=== PATIENT | female | born 1945 | race Two or more races ===

== ENCOUNTER 2019-01-02 22:52 | Emergency (ER) | payer MEDICARE, OTHER ==
[~2019-01-02] VITALS: Ht 154.9 cm; Wt 87.1 kg
--- NOTE | 2019-01-02 23:32 | NUR ---
PT BIBSELF COMPLAINING OF L RIB PAIN X THIS MORNING. PT DENIES ANY FALL OR TRAUMA. PT TOOK 500 MG TYLENOL. PT AXO4. RESPIRATIONS EVEN AND UNLABORED. PT PUT ON THE MARINE OILER AND PULSE OX.
[2019-01-02] MEDS ORDERED: HYDROCODONE/APAP 5/325MG 1 EACH TABLET ONE (23:51)
[2019-01-03] MEDS ORDERED: HYDROCODONE/APAP 5/325MG 1 EACH TABLET PO ONE
[2019-01-03 00:03] LABS: BASOPHILS # (AUTO) 0.1 /CMM (0.0-0.2); BASOPHILS % (AUTO) 0.7 % (0.0-2.0); EOSINOPHILS % (AUTO) 6.6 % (0.0-6.0); HEMATOCRIT 39 % (33-45); HEMOGLOBIN 13.4 g/dL (11.5-14.8); LYMPHOCYTES # (AUTO) 3.3 /CMM (0.8-4.8); LYMPHOCYTES % (AUTO) 37.5 % (20.0-44.0); MEAN CORPUSCULAR HGB CONC 34 g/dl (31.0-36.0); MEAN CORPUSCULAR VOLUME 89 fL (82-100); MONOCYTES # (AUTO) 0.6 /CMM (0.1-1.30); MONOCYTES % (AUTO) 6.7 % (2.0-12.0); NEUTROPHILS # (AUTO) 4.3 /CMM (1.8-8.9); NEUTROPHILS % (AUTO) 48.5 % (43.0-81.0); PLATELET COUNT (AUTO) 294 /CMM (150-450); RED BLOOD CELL COUNT(AUTO) 4.44 MIL/uL (4.0-5.2); WHITE BLOOD COUNT (AUTO) 8.9 K/uL (4.3-11.0)
[2019-01-03 00:13] LABS: CALCIUM, SERUM 8.9 mg/dL (8.5-10.1); CARBON DIOXIDE 27 mmol/L (21-32); CHLORIDE 103 mmol/L (98-107); CREATININE 0.6 mg/dL (0.6-1.3); GLUCOSE 147 mg/dL (74-106); POTASSIUM 3.9 mmol/L (3.5-5.1); SODIUM SERUM 138 mmol/L (136-145); UREA NITROGEN, BLOOD 16 mg/dL (7-18)
--- NOTE | 2019-01-03 00:13 | NUR ---
PT TAKEN TO RADIOLOGY DEPT. FOR XRAYS.
--- NOTE | 2019-01-03 00:21 | NUR ---
PT RETURNED FROM CT.
[2019-01-03 00:36] LABS: D-DIMER 3.4 mg/L(FEU (0.17-0.50)
[2019-01-03] MEDS ORDERED: IOHEXOL-350 100 ML VIAL IV ONE (00:49)
[2019-01-03] MEDS ORDERED: IV NS 0.9% 250 ML IV ONE (00:49)
[2019-01-03] MEDS ORDERED: CT SWABBABLE VALVE TRANS SET 1 EA INFUS.SET MC ONE (00:49)
--- NOTE | 2019-01-03 00:56 | NUR ---
PT TAKEN TO CT VIA RJAQUAN.
--- NOTE | 2019-01-03 01:05 | NUR ---
PT RETURNED FROM CT.
--- NOTE | 2019-01-03 02:10 | NUR ---
Patient discharged to home in stable condition. Written and verbal after care instructions given. Patient verbalizes understanding of instruction. IV removed. Catheter intact and site benign. Pressure and 4x4 applied to site. No bleeding noted.
[2019-01-03 02:11] VITALS: BP 132/77
== END 2019-01-03 02:12 | disposition home or self-care (01) ==
LOC: ER 22:52
DX: J18.9 Pneumonia, unspecified organism (principal); E11.9 Type 2 diabetes mellitus without complications; Z98.41 Cataract extraction status, right eye; Z98.42 Cataract extraction status, left eye
CPT/HCPCS: 36415; 71100; 71275; 80048; 84484; 85025; 85378; 85730; 93005; 99284; J7050; Q9967

== ENCOUNTER 2022-12-11 18:49 | Inpatient (IN) | payer MEDICARE, OTHER ==
[~2022-12-11] VITALS: Ht 152.4 cm; Wt 57.6 kg
--- NOTE | 2022-12-11 19:21 | NUR ---
BIB FAMILY C/O SOB, PRODUCTIVE COUGH X 1 WEEK, WORST TODAY. PATIENT PLACED COMFORTABLY IN BED, VITALS CHECKED.
[2022-12-11] MEDS ORDERED: ALBUTEROL FS 2.5 MG/0.5 ML VIAL.NEB NEB ONE (20:00)
[2022-12-11] MEDS ORDERED: methylPREDNISolone SOD SUCC 125 MG/2ML VIAL IV ONE (20:00)
--- NOTE | 2022-12-11 20:07 | NUR ---
EKG COMPLETED AT BEDSIDE
--- NOTE | 2022-12-11 20:15 | NUR ---
PHLEBOTOMY AT BEDSIDE
--- NOTE | 2022-12-11 20:24 | NUR ---
XR AT BEDSIDE
[2022-12-11] MEDS ORDERED: ALBUTEROL FS 2.5 MG/0.5 ML VIAL.NEB ONE (20:30)
[2022-12-11] MEDS ORDERED: methylPREDNISolone SOD SUCC 125 MG/2ML VIAL ONE (20:30)
--- NOTE | 2022-12-11 20:36 | NUR ---
MRSA SWAB COLLECTED AND SENT TO LAB
--- NOTE | 2022-12-11 20:36 | NUR ---
RT AT BEDSIDE FOR BREATHING TX
--- NOTE | 2022-12-11 20:36 | NUR ---
COVID SWAB COLLECTED AND SENT TO LAB
--- NOTE | 2022-12-11 20:38 | NUR ---
URINE CUP GIVEN TO PT
[2022-12-11] MEDS ORDERED: CEFEPIME 2 GM in IV D5W 100 ML IV STA (21:06)
--- NOTE | 2022-12-11 21:20 | NUR ---
1-PERSON ASSIST TO RESTROOM
--- NOTE | 2022-12-11 21:22 | NUR ---
URINE COLLECTED AND SENT TO LAB
[2022-12-11] MEDS ORDERED: DOXYCYCLINE 100 MG VIAL ONE (21:25)
[2022-12-11] MEDS ORDERED: CEFEPIME 1 GM VIAL ONE (21:28)
[2022-12-11] MEDS ORDERED: DOXYCYCLINE 100 MG in IV D5W 100 ML IV ONE (21:30)
[2022-12-11 21:36] LABS: BASOPHILS # (AUTO) 0.1 K/uL (0.0-0.2); BASOPHILS % (AUTO) 0.7 % (0.0-2.0); EOSINOPHILS % (AUTO) 2.4 % (0.0-6.0); HEMATOCRIT 43 % (33-45); HEMOGLOBIN 14.3 g/dL (11.5-14.8); MEAN CORPUSCULAR HGB CONC 33 g/dl (31.0-36.0); MEAN CORPUSCULAR VOLUME 92 fL (82-100); MONOCYTES # (AUTO) 1.1 K/uL (0.1-1.30); MONOCYTES % (AUTO) 7.7 % (2.0-12.0); NEUTROPHILS # (AUTO) 8.8 K/uL (1.8-8.9); NEUTROPHILS % (AUTO) 61.2 % (43.0-81.0); PLATELET COUNT (AUTO) 247 K/uL (150-450); RED BLOOD CELL COUNT(AUTO) 4.71 MIL/uL (4.0-5.2); WHITE BLOOD COUNT (AUTO) 14.3 K/uL (4.3-11.0)
[2022-12-11 21:42] LABS: CALCIUM, SERUM 9.1 mg/dL (8.5-10.1); CARBON DIOXIDE 27 mmol/L (21-32); CHLORIDE 100 mmol/L (98-107); CREATININE 0.5 mg/dL (0.6-1.3); GLUCOSE 116 mg/dL (74-106); POTASSIUM 3.7 mmol/L (3.5-5.1); SODIUM SERUM 137 mmol/L (136-145); UREA NITROGEN, BLOOD 10 mg/dL (7-18)
[2022-12-11 21:54] LABS: ALANINE AMINOTRANSFERASE 18 U/L (12-78); ALBUMIN 3.1 g/dL (3.4-5.0); ALKALINE PHOSPHATASE 88 U/L (46-116); ASPARTATE AMINOTRANSFERASE 27 U/L (15-37); BILIRUBIN,DIRECT 0.2 mg/dL (0.0-0.2); BILIRUBIN,TOTAL 0.7 mg/dL (0.2-1.0); TOTAL PROTEIN, SERUM 8.4 g/dL (6.4-8.2)
[2022-12-11] MEDS ORDERED: IPRATROPIUM NEB FS 0.5 MG/2.5 ML AMPUL.NEB NEB PRN (22:30)
[2022-12-11] MEDS ORDERED: Z GUARD REMEDY 4 OZ OINT TP PRN (22:30)
[2022-12-11] MEDS ORDERED: ALBUTEROL FS 2.5 MG/3 ML VIAL.NEB NEB PRN (22:30)
[2022-12-11] MEDS ORDERED: DEXTROSE 50%-WATER 50 ML DISP.SYRIN IV PRN (22:30)
[2022-12-11] MEDS ORDERED: ZOLPIDEM TARTRATE 5 MG TABLET PO PRN (22:30)
[2022-12-11] MEDS ORDERED: ONDANSETRON HCL/PF 4 MG/2 ML VIAL IVP PRN (22:30)
[2022-12-11] MEDS ORDERED: IV LR 1000 ML 1,000 ML IV ONE (22:30)
[2022-12-11] MEDS ORDERED: ACETAMINOPHEN 325 MG TABLET PO PRN (22:30)
[2022-12-11] MEDS ORDERED: MAG HYDROX/AL HYDROX/SIMETH 30 ML UDC PO PRN (22:30)
[2022-12-11] MEDS ORDERED: MAGNESIUM HYDROXIDE 30 ML UDC PO PRN (22:30)
[2022-12-11 22:42] LABS: BILIRUBIN,URINE NEGATIVE (NEGATIVE); COLOR,URINE YELLOW (YELLOW); LEUKOCYTE ESTERASE ,URINE NEGATIVE (NEGATIVE); NITRITE, URINE NEGATIVE (NEGATIVE); PROTEIN,URINE NEGATIVE (NEGATIVE); UGLUCOSE NEGATIVE (NEGATIVE)
[2022-12-11 22:49] LABS: BACTERIA,URINE Rare /HPF (None Seen); RBC,URINE 0-2 /HPF (0-2); SQUAMOUS EPITHELIAL CELL,UR Many /HPF (None Seen); WBC,URINE 0-2 /HPF (0-3)
--- NOTE | 2022-12-11 23:20 | NUR ---
20GA RFA ESTABLISHED. PT TOLERATED WELL.
--- NOTE | 2022-12-11 23:21 | NUR ---
REPORT GIVEN TO JUDI OLSON. PT GOING TO 325-1.
[2022-12-12] VITALS (8 sets, daily range): BP systolic 96–114; BP diastolic 58–75
[2022-12-12] MEDS: ENOXAPARIN SODIUM 40 MG/0.4 ML DISP.SYRIN SQ SCH ×2 (00:29→22:41)
--- NOTE | 2022-12-12 00:30 | NUR ---
PLANT OPERATIONS WORKERELECTROPHYSIOLOGY NURSE PRACTITIONER NOTE RECEIVED REPORT FROM DAYANA AND PATIENT WAS BROUGHT TO THE UNIT AT AROUND 2330 VIS STRETCHER, ACCOMPANIED BY 2 ER STAFFS. PATIENT WAS ADMITTED D/T SOB AND WORSENING PRODUCTIVE COUGH X1 WEEK. DIRECTED TO ROOM 325-1. PATIENT IS ALERT AND ORIENTED X3. BURKINAN SPEAKING. ABLE TO COMMUNICATE NEEDS WITH THE STAFFS. AFEBRILE AND NO C/O PAIN OR DISCOMFORT. PLACED PATIENT ON O2 INHALATION VIA NASAL CANNULA AT 3LPM. EXPLAINED ADMISSION PROCESS WHICH INCLUDES SKIN ASSESSMENT. SON WAS AT BEDSIDE DURING ADMISSION AND WAS ABLE TO EXPLAIN TO HIS MOM AND BOTH OF THEM AGREED FOR SKIN ASSESSMENT. PATIENT WAS NOTED WITH DISCOLORATION ON L ARM AND REDNESS ON SACRUM BUT SKIN IS INTACT. WITH IV ACCESS ON RFA 20G RUNNING WITH LR AND L WRIST 22G-SL. BELONGINGS AND VALUABLES CHECKED AND PROPERLY DOCUMENTED BY ASSIGNED STAFF. SAFETY MEASURES IN PLACE. KEPT BED IN LOCKED AND IN LOW POSITION. SIDE RAILS UP X2. ADVISED TO USE THE CALL LIGHT WHEN IN NEED OF ASSISTANCE.
--- NOTE | 2022-12-12 06:26 | NUR ---
[facility] DIRECTOR CLOSING NOTE PATIENT IN BED, WITH HOB ELEVATED, ASLEEP BUT EASY TO AROUSE AND RESPONSIVE. ALERT AND ORIENTED X3. ABLE TO MAKE NEEDS KNOWN. AFEBRILE AND NOT IN ANY FORM OF ACUTE DISTRESS. ON O2 INHALATION VIA NASAL CANNULA AT 3LPM. WITH IV ACCESS ON RFA 20G AND L WRIST 22G-SL. ON TELE MONITORING WITH CURRENT READING OF SR 68. MEDICATED ORDERED. ENCOURAGED TO TURN AND REPOSITION EVERY 2 HOURS AND TOLERATED TO PROMOTE PROPER CIRCULATION AND COMFORT. SAFETY MEASURES IN PLACE. KEPT BED IN LOCKED AND IN LOW POSITION. SIDE RAILS UP X2. ADVISED TO USE THE CALL LIGHT WHEN IN NEED OF ASSISTANCE. ALL NURSING NEEDS ATTENDED. ENDORSED TO INCOMING SHIFT FOR CONTINUITY OF CARE.
[2022-12-12] MEDS: BLOOD SUGAR DIAGNOSTIC 1 EACH STRIP IN SCH ×4 (06:32→21:33)
[2022-12-12 06:33] LABS: BASOPHILS % (AUTO) 0.1 % (0.0-2.0); HEMATOCRIT 38 % (33-45); HEMOGLOBIN 12.3 g/dL (11.5-14.8); LYMPHOCYTES # (AUTO) 1.4 K/uL (0.8-4.8); LYMPHOCYTES % (AUTO) 11.8 % (20.0-44.0); MEAN CORPUSCULAR HGB CONC 32 g/dl (31.0-36.0); MEAN CORPUSCULAR VOLUME 92 fL (82-100); MONOCYTES # (AUTO) 0.1 K/uL (0.1-1.30); MONOCYTES % (AUTO) 0.7 % (2.0-12.0); NEUTROPHILS # (AUTO) 10.3 K/uL (1.8-8.9); NEUTROPHILS % (AUTO) 87.4 % (43.0-81.0); PLATELET COUNT (AUTO) 266 K/uL (150-450); RED BLOOD CELL COUNT(AUTO) 4.15 MIL/uL (4.0-5.2); WHITE BLOOD COUNT (AUTO) 11.7 K/uL (4.3-11.0)
[2022-12-12] MEDS: INSULIN REGULAR, HUMAN 100 UNIT/ML 3 ML VIAL SQ PRN ×4 (06:35→23:00)
[2022-12-12 06:39] LABS: CHOLESTEROL 170 mg/dL (<200); HDL CHOLESTEROL 52 mg/dL (40-60); LDL 112 mg/dL (0-99); TRIGLYCERIDES 65 mg/dL (30-150)
[2022-12-12 06:52] LABS: CALCIUM, SERUM 8.9 mg/dL (8.5-10.1); CARBON DIOXIDE 27 mmol/L (21-32); CHLORIDE 103 mmol/L (98-107); CREATININE 0.5 mg/dL (0.6-1.3); GLUCOSE 226 mg/dL (74-106); MAGNESIUM 1.6 mg/dL (1.8-2.4); PHOSPHORUS 3.4 mg/dL (2.5-4.9); SODIUM SERUM 139 mmol/L (136-145); UREA NITROGEN, BLOOD 8 mg/dL (7-18)
--- NOTE | 2022-12-12 08:04 | NUR ---
TELE MANAGER RESEARCH OPENING NOTE PATIENT RECEIVED IN BED AWAKE A/OX4. PATIENT IS ON NASAL CANNULA 3LPM, SO2 93%; IN SLIGHT FOWLERS POSITION. TELE MONITOR SHOWING SR 70. VITALS: BP 96/61,HR 66,R 20, T 97.3. UKRAINIAN SPEAKING ABLE TO MAKE ALL NEED KNOWN. IV SITE RFA G#20; L WRIST G #22. CLEAN AND INTACT. PATIENT SAFETY PRECAUTION ARE IN PLACE: BED AT THE LOWEST POSITION, LOCKED, SR X2, CALL LIGHT WITHIN REACH.
[2022-12-12] MEDS ORDERED: PANTOPRAZOLE 40 MG VIAL IV SCH (09:00)
[2022-12-12] MEDS: methylPREDNISolone SOD SUCC 40 MG/ML VIAL IV SCH ×2 (09:01→21:19)
[2022-12-12] MEDS: Magnesium 1GM/D5W 100ML PREMIX 100 ML IV SCH ×2 (11:31→12:39)
[2022-12-12] MEDS ORDERED: NINT100C PO (15:18)
[2022-12-12] MEDS ORDERED: PRED5TAB48 PO (15:18)
--- NOTE | 2022-12-12 15:20 | NUR ---
RN NOTE Per patient's daughter, Pooja, patient's Transfusion Aide who is following up on her Idiopathic Pulmonary Fibrosis is Dr. Aly Alaniz [phone].
[2022-12-12] MEDS ORDERED: PRED5TAB PO (15:27)
--- NOTE | 2022-12-12 18:46 | NUR ---
TELE ALL SOURCE INTELLIGENCE CLOSING NOTE PATIENT IS IN BED RESTING, A/OX4 . PATIENT IS ON NASAL CANNULA 3LPM, SO2 91%; IN SLIGHT FOWLERS POSITION. NO S/S OF SOB. TELE MONITOR SHOWING SR 76. SCHEDULED MEDICATION ADMINISTERED.ALL NEEDS ATTENDED. IV SITE RFA G#20; L WRIST G #22. CLEAN AND INTACT. PATIENT SAFETY PRECAUTION ARE IN PLACE: BED AT THE LOWEST POSITION, LOCKED, SR X2, CALL LIGHT WITHIN REACH.
--- NOTE | 2022-12-12 21:06 | NUR ---
WIRE TWISTING MACHINE OPERATOR OPENING NOTES RECEIVED PATIENT IN BED, ON MODERATE HIGH BACKREST POSITION. ON NASAL CANNULA AT 3 LMP SATURATING AT 98%. ON BEDREST. USES COMMODE AT BEDSIDE AND DIAPER. ON CCHO DIET. WITH IV ACCESS AT RFA #29G ON SL PATENT AND INTACT. NO SON NOTED AT THIS TIME. NO PAIN OR DISCOMFORT NOTED. KEPT BED ON LOWER LOCKED POSITION, KEPT SIDE RAILS UP X 2 ALL THE TIME. KEPT PATIENT WARM AND COMFORTABLE. WILL CONTINUE TO MONITOR.
[2022-12-12] MEDS: CEFEPIME 1 GM in IV D5W 50 ML IV SCH (21:19)
[2022-12-13] VITALS: BP 110/70
[2022-12-13] MEDS: BLOOD SUGAR DIAGNOSTIC 1 EACH STRIP IN SCH ×4 (05:56→22:05)
[2022-12-13] MEDS: INSULIN REGULAR, HUMAN 100 UNIT/ML 3 ML VIAL SQ PRN ×3 (05:57→22:08)
--- NOTE | 2022-12-13 06:44 | NUR ---
RN MS CLOSING NOTES PATIENT IS IN BED, AWAKE ON MODERATE HIGH BACK REST POSITION.A/O X 4 ABLE TO VERBALIZED NEEDS ON OXYGEN VIA NASAL CANNULA AT 3LPM SATURATING WELL AT 98%. BREATHING TREATMENT GIVEN. NO S/S PAIN OR DISCOMFORT AT THIS TIME. NO S/S OF SOB OR NOTED AT THIS TIME. PATIENT IS CONTINENT USES COMMODE. ALL DUE MEDICATIONS GIVEN, ALL NEEDS ATTENDED. KEPT BED ON LOWER LOCKED POSITION, KEPT SIDE RAILS UP X 2 ALL THE TIME. KEPT CALL LIGHT WITHIN AT REACH. KEPT SAFETY MEASURES ALL THE TIME. WILL ENDORSED TO AM SHIFT FOR PETR.
--- NOTE | 2022-12-13 07:00 | NUR ---
LAMINATOR PREFORMS OPENING NOTES: RECEIVED PT IN BED AWAKE, ALERT AND ORIENTED X 4 AND ABLE TO MAKE NEEDS KNOWN, NO SOB OR CARDIAC DISTRESS NOTED. ON O2 INHALATION @ 3LPM VIA NC. ON TELE MONITOR WITH CURRENT READING OF SINUS RYTHM @85 BPM. WITH RFA GAUGE 20, L WRIST GAUGE 22 PATENT INTACT FLUSHING WELL AND SL. SAFETY MEASURES MAINTAINED: BED LOCKED AND IN LOWEST POSITION, SIDE RAILS UP X2 CALL LIGHT IN EASY [facility] FOR HELP. WILL MONITOR PT ACCORDINGLY.
[2022-12-13 08:00] VITALS: BP 128/81
[2022-12-13] MEDS: methylPREDNISolone SOD SUCC 40 MG/ML VIAL IV SCH ×2 (08:17→21:47)
[2022-12-13] MEDS: PANTOPRAZOLE 40 MG TABLET.DR PO SCH (08:17)
[2022-12-13] MEDS ORDERED: ALBU18HF2 INH (10:31)
[2022-12-13] MEDS ORDERED: PROM118S5 PO (10:31)
[2022-12-13] MEDS ORDERED: FLUT1BLS INH (10:31)
[2022-12-13 11:10] LABS: BASOPHILS % (AUTO) 0.2 % (0.0-2.0); HEMATOCRIT 38 % (33-45); HEMOGLOBIN 12.3 g/dL (11.5-14.8); LYMPHOCYTES # (AUTO) 1.3 K/uL (0.8-4.8); LYMPHOCYTES % (AUTO) 8.7 % (20.0-44.0); MEAN CORPUSCULAR HGB CONC 32 g/dl (31.0-36.0); MEAN CORPUSCULAR VOLUME 91 fL (82-100); MONOCYTES # (AUTO) 0.5 K/uL (0.1-1.30); MONOCYTES % (AUTO) 3.4 % (2.0-12.0); NEUTROPHILS # (AUTO) 13.2 K/uL (1.8-8.9); NEUTROPHILS % (AUTO) 87.7 % (43.0-81.0); PLATELET COUNT (AUTO) 269 K/uL (150-450); RED BLOOD CELL COUNT(AUTO) 4.16 MIL/uL (4.0-5.2); WHITE BLOOD COUNT (AUTO) 15.1 K/uL (4.3-11.0)
[2022-12-13 11:21] LABS: CALCIUM, SERUM 8.8 mg/dL (8.5-10.1); CARBON DIOXIDE 28 mmol/L (21-32); CHLORIDE 103 mmol/L (98-107); CREATININE 0.5 mg/dL (0.6-1.3); GLUCOSE 208 mg/dL (74-106); POTASSIUM 4.2 mmol/L (3.5-5.1); SODIUM SERUM 139 mmol/L (136-145); UREA NITROGEN, BLOOD 14 mg/dL (7-18)
[2022-12-13 12:00] VITALS: BP_SYST 116; BP_SYST 126; BP_DIAS 73; BP_DIAS 76
[2022-12-13] MEDS: BENZONATATE 100 MG CAPSULE PO PRN ×2 (12:17→21:48)
[2022-12-13 16:00] VITALS: BP 126/76
--- NOTE | 2022-12-13 18:48 | NUR ---
SOLAR SALES ASSESSOR CLOSING NOTES: PT IN BED AWAKE, ALERT AND ORIENTED X 4 AND ABLE TO MAKE NEEDS KNOWN, NO SOB OR CARDIAC DISTRESS NOTED. ON O2 INHALATION @ 3LPM VIA NC. ON TELE MONITOR WITH CURRENT READING OF SINUS RHYTHM @75 BPM. WITH RFA GAUGE 20, L WRIST GAUGE 22 PATENT INTACT FLUSHING WELL AND SL. SAFETY MEASURES MAINTAINED: BED LOCKED AND IN LOWEST POSITION, SIDE RAILS UP X2 CALL LIGHT IN EASY REACH FOR HELP. WILL ENDORSED TO ORTHOPEDIC NURSE PRACTITIONER RN FOR PETR.
--- NOTE | 2022-12-13 19:05 | NUR ---
MUSKRAT TRAPPER OPENING NOTES: PATIENT IS SITTING IN BED WITH HER FAMILY MEMBERS AT HER BED SIDE. SHE IS ALERT AND ORIENTED, AO X 4. PT IS ON 3 TOMATO PULPER OPERATOR OF OXYGEN VIA NC, TOLERATED WELL. NO S/S OF DISTRESS OR SOB. SHE IS ON EXTERNAL AQUACULTURE FARMER, ON THE MONITOR, HER HEART RHYTHM IS SR. AND HER HR IS AT 90S. SHE HAS IV ACCESS AT HER R FA, #20G; SL. AND ANOTHER ONE IS AT HER L WRIST, GAUGE 22, SL. BOTH IV ACCESS ARE FLUSHED WELL WITH NS. IV SITE IS PATENT INTACT. INSTRUCTED THE PT TO CALL FOR HELP NEEDED. SAFETY MEASURES ARE IN PLACED: BED IS LOCKED AND IN THE LOWEST POSITION; SIDE RAILS UP X2; BED ALARM IS SET; CALL LIGHT AND TABLE ARE WITHIN EASY REACH. WILL CONTINUE MONITORING THE PT AND PROVIDE THE CARE SHE NEEDS.
[2022-12-13 20:00] VITALS: BP 109/67
[2022-12-13] MEDS: CEFEPIME 1 GM in IV D5W 50 ML IV SCH (21:48)
[2022-12-13] MEDS: ENOXAPARIN SODIUM 40 MG/0.4 ML DISP.SYRIN SQ SCH (21:49)
--- NOTE | 2022-12-13 21:49 | NUR ---
MEDIA ANALYST NOTE PT HAS PRODUCTIVE COUGH. PRN PO MEDICATION, BENZONATATE 100 MG, ADMINISTERED TO THE PT PER MD ORDER.
--- NOTE | 2022-12-13 22:00 | NUR ---
OUTBOARD MOTOR INSPECTOR NOTE FOUND PT HAS MULTIPLE DIFFERENT HOME MEDICATIONS AT HER BED SIDE. PT STATES THAT SHE WILL LET HER SON TAKE THEM HOME TOMORROW. SEALED THE MEDICATIONS IN A PLASTIC BAG AND PUT THEM AT THE NURSING STATION. WILL LET THE DAY SHIFT NURSE FOLLOW UP TO LET PT'S FAMILY MEMBERS BRING THE MEDICATIONS HOME. CHARGE NURSE, NARENDRA, NOTIFIED.
[2022-12-14] VITALS (7 sets, daily range): BP systolic 106–138; BP diastolic 66–81
[2022-12-14 06:14] LABS: BASOPHILS % (AUTO) 0.1 % (0.0-2.0); HEMATOCRIT 37 % (33-45); HEMOGLOBIN 12.3 g/dL (11.5-14.8); LYMPHOCYTES # (AUTO) 1.5 K/uL (0.8-4.8); LYMPHOCYTES % (AUTO) 11.7 % (20.0-44.0); MEAN CORPUSCULAR HGB CONC 33 g/dl (31.0-36.0); MEAN CORPUSCULAR VOLUME 92 fL (82-100); MONOCYTES # (AUTO) 0.3 K/uL (0.1-1.30); MONOCYTES % (AUTO) 2.3 % (2.0-12.0); NEUTROPHILS # (AUTO) 10.8 K/uL (1.8-8.9); NEUTROPHILS % (AUTO) 85.9 % (43.0-81.0); PLATELET COUNT (AUTO) 286 K/uL (150-450); RED BLOOD CELL COUNT(AUTO) 4.09 MIL/uL (4.0-5.2); WHITE BLOOD COUNT (AUTO) 12.6 K/uL (4.3-11.0)
[2022-12-14] MEDS: INSULIN REGULAR, HUMAN 100 UNIT/ML 3 ML VIAL SQ PRN ×4 (06:35→22:51)
[2022-12-14] MEDS: BLOOD SUGAR DIAGNOSTIC 1 EACH STRIP IN SCH ×4 (06:36→22:44)
[2022-12-14 06:44] LABS: CALCIUM, SERUM 8.9 mg/dL (8.5-10.1); CARBON DIOXIDE 29 mmol/L (21-32); CHLORIDE 104 mmol/L (98-107); CREATININE 0.5 mg/dL (0.6-1.3); GLUCOSE 210 mg/dL (74-106); MAGNESIUM 1.9 mg/dL (1.8-2.4); POTASSIUM 4.3 mmol/L (3.5-5.1); SODIUM SERUM 141 mmol/L (136-145); UREA NITROGEN, BLOOD 16 mg/dL (7-18)
--- NOTE | 2022-12-14 06:50 | NUR ---
FIELD AGENT NOTE PT'S HOME MEDICATION IS AT THE NURSING STATION, SEALED IN A PLASTIC BAG. PT STATED HER FAMILY MEMBER WOULD TAKE IT HOME. WILL ENDORSE NEXT SHIFT NURSE TO FOLLOW UP.
--- NOTE | 2022-12-14 06:53 | NUR ---
COURT ATTENDANT CLOSING NOTES: PATIENT IS SITTING IN BED. SHE IS ALERT AND ORIENTED, AO X 4. PT IS ON 3 INSTRUMENT FITTER OF OXYGEN VIA NC, TOLERATED WELL. NO S/S OF DISTRESS OR SOB. SHE IS ON EXTERNAL PER DIEM INTERPRETER, ON THE MONITOR, HER HEART RHYTHM IS SB WITH HR AT 50S AND 40S. AFTER MIDNIGHT, PT STARTED HAVING IMTIAZ CARDIA. PT WAS ASYMPTOMATIC. CHARGE NURSE, NARENDRA, NOTIFIED. BP WERE WITHIN HER BASELINE. PT HAS TWO IV ACCESS. ONE IS AT HER R FA, #20G; SL. AND ANOTHER ONE IS AT HER L WRIST, GAUGE 22, SL. BOTH IV ACCESS ARE FLUSHED WELL WITH NS. IV SITE IS PATENT INTACT. INSTRUCTED THE PT TO CALL FOR HELP NEEDED. SAFETY MEASURES ARE IN PLACED: BED IS LOCKED AND IN THE LOWEST POSITION; SIDE RAILS UP X2; BED ALARM IS SET; CALL LIGHT AND TABLE ARE WITHIN EASY REACH. WILL ENDORSE NEXT SHIFT NURSE FOR CONTINUING PT CARE.
[2022-12-14 07:11] LABS: PHOSPHORUS 3.7 mg/dL (2.5-4.9)
--- NOTE | 2022-12-14 07:36 | NUR ---
RN OPENING NOTES: I RECEIVED PATIENT IN BED ASLEEP, EASILY AWAKENED. A/O X 4 . PT IS ON NC 3 LPM O2 . BREATHING EVEN AND NONLABORED. NO COMPLAINT OF PAIN AT THIS TIME. NKA. PT IS ON [place]UP[place]A LINER HELPER SINUS IMTIAZ HR @ 46 . NO COMPLAINS OF CHEST PAIN AT TINS TIME. NOTED WITH IV ACCESS ON RIGHT FA #20 G, S.L AND LEFT WRIST # 22 G, SL. SAFETY MEASURE IN PLACE. BED IN LOW AND LOCKED POSITION. SIDE RAILS UP X2. CALL LIGHT WITHIN REACH. I WILL CONTINUE TO MONITOR PT.
[2022-12-14] MEDS: methylPREDNISolone SOD SUCC 40 MG/ML VIAL IV SCH ×2 (08:37→21:27)
[2022-12-14] MEDS: PANTOPRAZOLE 40 MG TABLET.DR PO SCH (08:37)
--- NOTE | 2022-12-14 11:00 | NUR ---
PT came and worked with pt. Today PT HAS LIMITED GAIT ACTIVITY DUE TO SHORTNESS OF BREATH DURING GAIT TRAINING AND HER o2 SATURATION DECREASED TO 80%. @ 2 L O2 VIA NC WHICH MADE IT DIFFICULT FOR HER TO WALK LONGER DISTANCE. PROPER BREATHING AND PACING WERE INSTRUCTED TO PATIENT TO ENHANCE ACTIVITY TOLERANCE.
--- NOTE | 2022-12-14 18:35 | NUR ---
RN CLOSING NOTES : PT IS A & O X 4 SITTING IN A CHAIR AND AWAKE. PT IS ON TELE MONITOR WITH CURRENT READING OF SINUS RHYTHM @ 72 BPM, ABLE TO MAKE NEEDS KNOWN, NO SOB OR CARDIAC DISTRESS NOTED AT THIS TIME. NO PAIN, ON NC O2 INHALATION @ 3 LPM . IV ACCESS ON RFA GAUGE 20 WELL L WRIST GAUGE 22 , PATENT INTACT FLUSHING WELL AND SL. SAFETY MEASURES MAINTAINED: BED LOCKED AND IN LOWEST POSITION, 2 SIDE RAILS UP . CALL LIGHT IN EASY REACH. THE REPORT OF PT'S CHEST CT IN BACK. WILL ENDORSED TO CANVAS SHOP LABORER RN FOR CONTINUITY OF CARE.
--- NOTE | 2022-12-14 19:00 | NUR ---
RN OPENING NOTE RECEIVED PT AWAKE IN BED WITH FAMILY ON BEDSIDE. PT IS A/OX4, EGYPTIAN & HUNGARIAN SPEAKING, ABLE TO MAKE NEEDS KNOWN.pt IS IN 3L OF O2 VIA NASAL CANNULA TOLERATING WELL, BREATHING EVEN AND UNLABORED @ THIS TIME. PT IV IS PRESENT ON RFA #20G SALINE LOCK IS INFILTRATED AND LEFT WRIST #22G SALINE LOCK, PATENT, INTACT AND FLUSHES WELL W/ NO S&SX OF INFILTRATION @ SITE NOTED. PT IS ON TELEMONITOR WITH CURRENT READING OF SINUS RHYTHM, HR 72BPM. PT IS AMBULATORY W/ BRP W/ WALKER, ON STANDBY ASSIST. SAFETY MEASURES IS IN PLACE. BED AT ITS LOWEST AND LOCKED POSITION. SIDE RAILS UP X 2. BEDSIDE TABLE AND CALL LIGHT IS WITHIN REACH. BED ALARM IS ON. WILL CONTINUE TO MONITOR PT ACCORDINGLY.
--- NOTE | 2022-12-14 20:00 | NUR ---
IV ON RFA AND LEFT WRIST OUT D/T INFILTRATION. INSERTED NEW IV @ RFA #22G.
[2022-12-14] MEDS: CEFEPIME 1 GM in IV D5W 50 ML IV SCH (21:27)
[2022-12-14] MEDS: ENOXAPARIN SODIUM 40 MG/0.4 ML DISP.SYRIN SQ SCH (22:55)
[2022-12-15] VITALS: BP 131/72
[2022-12-15 00:38] VITALS: BP 138/81
[2022-12-15 04:55] VITALS: BP 122/70
[2022-12-15 05:57] LABS: BASOPHILS % (AUTO) 0.1 % (0.0-2.0); HEMATOCRIT 39 % (33-45); HEMOGLOBIN 12.8 g/dL (11.5-14.8); LYMPHOCYTES # (AUTO) 1.2 K/uL (0.8-4.8); LYMPHOCYTES % (AUTO) 14.3 % (20.0-44.0); MEAN CORPUSCULAR HGB CONC 33 g/dl (31.0-36.0); MEAN CORPUSCULAR VOLUME 91 fL (82-100); MONOCYTES # (AUTO) 0.3 K/uL (0.1-1.30); MONOCYTES % (AUTO) 3.6 % (2.0-12.0); NEUTROPHILS # (AUTO) 7.1 K/uL (1.8-8.9); PLATELET COUNT (AUTO) 297 K/uL (150-450); RED BLOOD CELL COUNT(AUTO) 4.25 MIL/uL (4.0-5.2); WHITE BLOOD COUNT (AUTO) 8.7 K/uL (4.3-11.0)
[2022-12-15 06:20] LABS: CALCIUM, SERUM 8.7 mg/dL (8.5-10.1); CARBON DIOXIDE 30 mmol/L (21-32); CHLORIDE 102 mmol/L (98-107); CREATININE 0.5 mg/dL (0.6-1.3); GLUCOSE 203 mg/dL (74-106); PHOSPHORUS 3.7 mg/dL (2.5-4.9); POTASSIUM 4.1 mmol/L (3.5-5.1); SODIUM SERUM 139 mmol/L (136-145); UREA NITROGEN, BLOOD 18 mg/dL (7-18)
--- NOTE | 2022-12-15 06:36 | NUR ---
RN CLOSING NOTE PT AWAKE, RESTING COMFORTABLY IN BED. A/O X 4, RESPONSIVE AND FOLLOWS VERBAL COMMAND. PT IS IN 3L O2 VIA NASAL CANNULA, W/ NO S&SX RESPIRATORY DISTESS NOTED @ THIS TIME. PT OCCASIONALLY COUGH. PT IV PRESENT ON RFA #22G, PATENT, INTACT AND FLUSHES WELL W/ NO S & SX OF INFILTRATION. PT CAN WALK INDEPENDENTLY TO THE BATHROOM WITH MINIMAL ASSIST. ADMINISTERED MEDICATION ACCORDINGLY PER MD'S ORDER. SAFETY MEASURES IS INITIATED. BED AT ITS LOWEST AND LOCKED POSITION. SIDE RAILS UP X 2. BEDSIDE TABLE AND CALL LIGHT IS EASY REACH. BED ALARM IS ON. WILL ENDORSE PT TO THE NEXT SHIFT FOR CONTINUITY OF CARE.
[2022-12-15 07:00] VITALS: BP 118/71
[2022-12-15] MEDS: BLOOD SUGAR DIAGNOSTIC 1 EACH STRIP IN SCH ×3 (07:12→17:24)
--- NOTE | 2022-12-15 07:17 | NUR ---
TELE- RN OPENING NOTES RECEIVED PT AWAKE IN BED IN NO ACUTE SIGNS OF DISTRESS. A/OX4, AFGHAN SPEAKING AND SOME IVORIAN. DENIES PAIN OR ANY DISCOMFORTS AT THIS TIME. ON SUPPLEMENTAL O2 VIA N/C @ 3LPM, TOLERATING WELL, BREATHING EVEN AND UNLABORED. IV ACCES ON RFA #22G, SL, INTACT AND PATENT.ON TELE-MONITOR WITH CURRENT READING OF SB, HR 47 BPM, NO C/O CARDIAC DISTRESS VOICED. SAFETY MEASURES IN PLACE: BED IN LOWEST LOCKED POSITION WITH SR-UP X2, CALL LIGHT AND TRAY TABLE W/I EASY REACH OF PT. WILL CONTINUE TO MONITOR PT.
[2022-12-15] MEDS: INSULIN REGULAR, HUMAN 100 UNIT/ML 3 ML VIAL SQ PRN ×3 (07:55→17:24)
[2022-12-15] MEDS: methylPREDNISolone SOD SUCC 40 MG/ML VIAL IV SCH (08:54)
[2022-12-15] MEDS: PANTOPRAZOLE 40 MG TABLET.DR PO SCH (08:54)
[2022-12-15 12:00] VITALS: BP 131/80
[2022-12-15] MEDS ORDERED: PRED5TAB PO (13:13)
[2022-12-15] MEDS ORDERED: BENZ-38 PO (13:13)
[2022-12-15] MEDS ORDERED: PRED50TA PO (13:13)
[2022-12-15] MEDS ORDERED: PRED10TA PO (13:13)
[2022-12-15] MEDS ORDERED: PRED20TA PO (13:13)
[2022-12-15 16:00] VITALS: BP 126/69
--- NOTE | 2022-12-15 16:52 | NUR ---
RN NOTES PT FOR D/C TODAY. PT'S DAUGHTER VERBALIZED THAT PT HAS PORTABLE CONCENTRATOR AT HER BROTHER'S HOUSE HERE IN [place], [place] AND JUST NEEDS 02 TANKS WHEN PT TRAVELS BACK TO [place] ON MONDAY. DELIVERY TREV FROM [facility] DELIVERED ONE 02 TANK 2,000L FULL CAPACITY. DELIVERY TREV EXPLAINED TO PT AND PT'S [id number] LUCIANA TO CALL [facility] AT TEL # [phone] TO REFILL THEIR EMPTY TANKS TOMORROW MORNING. AWAITING FOR PT'S SON BHARATH TO PICK-UP PT.
--- NOTE | 2022-12-15 18:09 | NUR ---
RN DISCHARGED NOTES PATIENT DISCHARGED HOME IN STABLE CONDITION. A/O X4. ABLE TO MAKE NEEDS KNOWN. PHOTOS OF SKIN ISSUES TAKEN AND FILED ON HER CHART. ALL BELONGINGS ACCOUNTED FOR AND PT SIGNED BELONGINGS LIST. IV ACCESS ON RFA G#22 REMOVED WITH NO ACTIVE BLEEDING NOTED, DRY DRESSING APPLIED AT SITE. HEALTH TEACHINGS/DISCHARGE INSTRUCTIONS GIVEN TO PT, SON AND [id number], ALL VERBALIZED UNDERSTANDING. NAME ARMBAND REMOVED. PT LEFT UNIT @ 1800 VIA WHEELCHAIR ACCOMPANIED BY BENITO ZAMORA ON 02 VIA N/C @ 3LPM VIA PORTABLE 02 TANK, TOLERATING WELL WITH NO SOB NOTED. MD AND CHARGE NURSE AWARE OF DISCHARGE.
== END 2022-12-15 18:00 | disposition home health service (06) | DRG 196 ==
LOC: ER 19:15 → TELE 22:27
PROVIDERS: ADMIT Nurse Practitioner Acute Care; ATTEND Nurse Practitioner Acute Care
DX: J84.10 Pulmonary fibrosis, unspecified (principal); J96.01 Acute respiratory failure with hypoxia; M19.90 Unspecified osteoarthritis, unspecified site; Z99.81 Dependence on supplemental oxygen; E11.36 Type 2 diabetes mellitus with diabetic cataract; M06.9 Rheumatoid arthritis, unspecified; J20.9 Acute bronchitis, unspecified; I27.20 Pulmonary hypertension, unspecified; R59.0 Localized enlarged lymph nodes
CPT/HCPCS: 36415; 71045-TC; 71250-TC; 80048-TC; 80061-TC; 80076-TC; 81001; 82962-TC; 83605-TC; 83735-TC; 83880; 84100-TC; 84484-TC; 85025-TC; 87040-TC; 87081-TC; 94799-TC; 97112-TC; 97116-TC; 97530-TC; A4223; C9113; C9803; G0378; J0692; J1650; J1815; J2920; J2930; J3475; J3490; J7050; J7060; J7120